=== PATIENT | female | born 1940 | race Caucasian/White ===

== ENCOUNTER 2018-12-08 08:01 | Inpatient (IN) | payer OTHER ==
[2018-12-07 14:59] VITALS: BMI 24.6
[2018-12-08] MEDS ORDERED: ALBUTEROL SO4 0.083% IH SOL 2.5 MG/3 ML VIAL.NEB. NEB PRN ×2 (10:41→20:05)
[2018-12-08] MEDS ORDERED: ALBUTEROL SO4 0.083% IH SOL 2.5 MG/3 ML VIAL.NEB. NEB ONE (10:43)
[2018-12-08] MEDS ORDERED: ALPRAZolam 0.25 MG TABLET PO PRN ×2 (10:57→20:05)
[2018-12-08] MEDS ORDERED: ALBUTEROL SO4 2.5/IPRATROPIUM 0.5 INH SOL 3 ML VIAL.NEB. NEB PRN ×2 (10:57→20:05)
[2018-12-08] MEDS ORDERED: ACETAMINOPHEN 325 MG TABLET (FP) PO PRN ×2 (10:57→20:05)
[2018-12-08] MEDS ORDERED: DEXTROSE 5%-0.45% SALINE 1,000 ML IV SCH ×2 (11:00→20:05)
[2018-12-08] MEDS ORDERED: ASPIRIN COATED 81 MG TABLET.EC PO SCH (11:00)
[2018-12-08] MEDS ORDERED: ACETAMINOPHEN 325 MG TABLET (FP) ONE (11:10)
--- NOTE | 2018-12-08 11:42 | CONSULT ---
Consultation: REQUESTING PROVIDER: CONSULT REQUEST: We have been asked to medically evaluate this patient for ( specify). HISTORY OF PRESENT ILLNESS: REVIEW OF SYSTEMS: CONSTITUTIONAL: Absent: fever, chills, diaphoresis, generalized weakness, malaise, loss of appetite, weight change HEENT: Absent: rhinorrhea, nasal congestion, throat pain, throat swelling, difficulty swallowing, mouth swelling, ear pain, eye pain, visual changes CARDIOVASCULAR: Absent: chest pain, syncope, palpitations, irregular heart rate, lightheadedness , peripheral edema RESPIRATORY: Absent: cough, shortness of breath, dyspnea with exertion, orthopnea, wheezing, stridor, hemoptysis GASTROINTESTINAL: Absent: abdominal pain, abdominal distension, nausea, vomiting, diarrhea, constipation, melena, hematochezia GENITOURINARY: Absent: dysuria, frequency, urgency, hesitancy, hematuria, flank pain, genital pain MUSCULOSKELETAL: Absent: myalgia, arthralgia, joint swelling, back pain, neck pain SKIN: Absent: rash, itching, pallor HEMATOLOGIC/IMMUNOLOGIC: Absent: easy bleeding, easy bruising, lymphadenopathy, frequent infections ENDOCRINE: Absent: unexplained weight gain, unexplained weight loss, heat intolerance, cold intolerance NEUROLOGIC: Absent: headache, focal weakness or paresthesias, dizziness, unsteady gait, seizure, mental status changes, bladder or bowel incontinence PSYCHIATRIC: Absent: anxiety, depression, suicidal or homicidal ideation, hallucinations. PHYSICAL EXAMINATION Vital Signs - 24 hr 12/08/18 12/08/18 12/08/18 08:31 09:20 09:35 Temperature 97.6 F 97.8 F Pulse Rate 74 80 70 Respiratory 16 20 20 Rate Blood Pressure 125/75 102/60 112/64 O2 Sat by Pulse 100 92 L 94 L Oximetry (%) 12/08/18 12/08/18 12/08/18 09:50 10:35 10:50 Temperature Pulse Rate 70 54 L 60 Respiratory 18 15 19 Rate Blood Pressure 106/63 136/71 144/62 O2 Sat by Pulse 94 L 100 100 Oximetry (%) 12/08/18 12/08/18 12/08/18 11:05 11:20 11:36 Temperature Pulse Rate 60 75 74 Respiratory 18 20 16 Rate Blood Pressure 132/67 138/68 124/63 O2 Sat by Pulse 100 99 100 Oximetry (%) GENERAL: Awake, alert, and fully oriented, in no acute distress. HEAD: Normal with no signs of trauma. EYES: Pupils equal, round and reactive to light, extraocular movements intact, sclera anicteric, conjunctiva clear. No lid lag. EARS, NOSE, THROAT: Ears normal, nares patent, oropharynx clear without exudates. Moist mucous membranes. NECK: Normal range of motion, supple without lymphadenopathy, JVD, or masses. LUNGS: Breath sounds equal, clear to auscultation bilaterally. No wheezes, and no crackles. No accessory muscle use. HEART: Regular rate and rhythm, normal S1 and S2 without murmur, rub or gallop. ABDOMEN: Soft, nontender, not distended, normoactive bowel sounds, no guarding, no rebound, no masses. No hepatomegaly or splenomegaly. MUSCULOSKELETAL: Normal range of motion at all joints. No bony deformities or tenderness. No CVA tenderness. UPPER EXTREMITIES: 2+ pulses, warm, well-perfused. No cyanosis. No clubbing. Cap refill <2 seconds. No peripheral edema. LOWER EXTREMITIES: 2+ pulses, warm, well-perfused. No calf tenderness. No peripheral edema. NEUROLOGICAL: Cranial nerves II-XII intact. Normal speech. Normal gait. PSYCHIATRIC: Cooperative. Good eye contact. Appropriate mood and affect. SKIN: Warm, dry, normal turgor, no rashes or lesions noted. Active Medications Generic Name Dose Route Start Last Admin Trade Name Freq PRN Reason Stop Dose Admin Acetaminophen 650 mg 12/08/18 10:57 Tylenol - PO Q6H PRN PAIN OR FEVER Albuterol Sulfate 1 amp 12/08/18 10:41 12/08/18 10:45 Ventolin 0.083% Nebulizer Soln - NEB 1 amp Q4H PRN Administration SHORT OF BREATH/WHEEZING Albuterol/Ipratropium 1 amp 12/08/18 10:57 Duoneb - NEB Q6H PRN SHORTNESS OF BREATH Alprazolam 0.25 mg 12/08/18 10:57 Xanax - PO Q8H PRN ANXIETY Aspirin 81 mg 12/08/18 11:00 Ecotrin - PO DAILY [place] Atorvastatin Calcium 20 mg 12/08/18 22:00 Lipitor - PO HS [place] Cefazolin Sodium/Dextrose 2 gm 12/08/18 18:00 Ancef 2 Gm Premixed Ivpb - IVPB Q8H-IV [place] Dextrose/Sodium Chloride 1,000 mls @ 75 mls/hr 12/08/18 11:00 D5-1/2ns - IV ASDIR [place] ASSESSMENT/PLAN: Dispo: Would recommend continued plan with telemetry vs. med-surg floor monitoring as satellite per primary/GI teams ATTENDING PHYSICIAN STATEMENT I saw and evaluated the patient. I reviewed the resident's note and discussed the case with the resident. I agree with the resident's findings and plan as documented. SUBJECTIVE: OBJECTIVE: ASSESSMENT AND PLAN:
--- NOTE | 2018-12-08 11:42 | CON.GI ---
Consult Consult Specialty:: Gastroenterology Referred by:: Dr Troy Diego Reason for Consultation:: Chest pain after colonoscopy - History of Present Illness Chief Complaint: Chest pain sore throat and dyspnea History of Present Illness: 78F underwent an ambulatory colonoscopy today that led to the removal of [address] colonography had revealed a left colon polyp and her mother developed colon cancer at age 49. After the colonoscopy she complained of throat pain. About 20 minutes late she developed a pressure type retrosternal chest pain and dyspnea. On exam I found wheezing and left sided rhonchi which were new. She denes abdominal pain. A stat EKG reveals no acute changes. She feels a bit better after a nebulizer treatment. She quit smoking in 2009 and denies asthma. - History Source History Provided By: Patient Limitations to Obtaining History: No Limitations - Past Medical History Cardio/Vascular: Yes: Hyperlipdemia, Other (MVP) Gastrointestinal: Yes: Diverticulosis, Other (colon polyps removed 12/08/18) ...: No Musculoskeletal: Yes: Chronic low back pain (lumbar disc disease with spinal stenosis and compression fracture) - Past Surgical History Past Surgical History: Yes: Appendectomy, Breast Biopsy (benign right breast bx) , Cholecystectomy, Colonoscopy, (x2) - Alcohol/Substance Use Hx Alcohol Use: Yes (OCCASIONAL) History of Substance Use: reports: None - Smoking History Smoking history: Former smoker Have you smoked in the past 12 months: No If you are a former smoker, when did you quit?: 1996 - Social History Usual Living Arrangement: With Spouse ADL: Independent 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 [employer] Place of : [facility] History of Recent Travel: No Home Medications - Allergies Allergies/Adverse Reactions: Allergies Allergy/AdvReac Type Severity Reaction Status Date / Time No Known Allergies Allergy Verified 04/14/16 13:24 - Home Medications Home Medications: Ambulatory Orders Alprazolam 1 mg PO HS 04/14/16 Aspirin [Aspirin EC] 81 mg PO DAILY 04/14/16 Cholecalciferol (Vitamin D3) [Vitamin D3 -] 1,000 unit PO DAILY 04/14/16 Atorvastatin Ca [Lipitor] 40 mg PO HS 12/08/18 Family Disease History - Family Disease History Family Disease History: Diabetes: Daughter, Heart Disease: Brother, CA: Father ( pancreatic cancer), Mother (colon cancer age 47) Other Family History: mat aunt had colon cancer, another mat aunt had breast cancer, pat GM and aunt had breast cancers Review of Systems - Review of Systems Constitutional: reports: Other (vertigo) Eyes: reports: No Symptoms HENT: reports: No Symptoms Neck: reports: No Symptoms Cardiovascular: reports: No Symptoms Respiratory: reports: No Symptoms Gastrointestinal: reports: No Symptoms Musculoskeletal: reports: Back Pain Neurological: reports: Dizziness, Other (vertigo) Physical Exam-GI Vital Signs: Vital Signs Temperature 97.8 F 12/08/18 09:20 Pulse Rate 74 12/08/18 11:36 Respiratory Rate 16 12/08/18 11:36 Blood Pressure 124/63 12/08/18 11:36 O2 Sat by Pulse Oximetry (%) 100 12/08/18 11:36 Current Medications Generic Name Dose Route Start Last Admin Trade Name Freq PRN Reason Stop Dose Admin Acetaminophen 650 mg 12/08/18 10:57 Tylenol - PO Q6H PRN PAIN OR FEVER Albuterol Sulfate 1 amp 12/08/18 10:41 12/08/18 10:45 Ventolin 0.083% Nebulizer Soln - NEB 1 amp Q4H PRN Administration SHORT OF BREATH/WHEEZING Albuterol/Ipratropium 1 amp 12/08/18 10:57 Duoneb - NEB Q6H PRN SHORTNESS OF BREATH Alprazolam 0.25 mg 12/08/18 10:57 Xanax - PO Q8H PRN ANXIETY Aspirin 81 mg 12/08/18 11:00 Ecotrin - PO DAILY [place] Atorvastatin Calcium 20 mg 12/08/18 22:00 Lipitor - PO HS [place] Cefazolin Sodium/Dextrose 2 gm 12/08/18 12:00 Ancef 2 Gm Premixed Ivpb - IVPB Q8H-IV [place] Dextrose/Sodium Chloride 1,000 mls @ 75 mls/hr 12/08/18 11:00 D5-1/2ns - IV ASDIR [place] Constitutional: Yes: Anxious Eyes: Yes: Conjunctiva Clear HENT: Yes: Atraumatic Neck: Yes: Supple Cardiovascular: Yes: Regular Rate and Rhythm Respiratory: Yes: Rhonchi, Wheezes Gastrointestinal Inspection: Yes: Scars (healed RUQ oblique and Pfannensteil incisions) ...Auscultate: Yes: Normoactive Bowel Sounds ...Palpate: Yes: Soft, Other (nontender) ...Rectal Exam: Yes: Other (no masses ( dne before the colonscopy)) Extremities: Yes: WNL Edema: No Peripheral Pulses WNL: Yes Problem List - Problems (1) Chest pain Code(s): R07.9 - CHEST PAIN, UNSPECIFIED (2) Dyspnea and respiratory abnormalities Code(s): R06.00 - DYSPNEA, UNSPECIFIED; R06.89 - OTHER ABNORMALITIES OF BREATHING (3) Wheezing on both sides of chest Code(s): R06.2 - WHEEZING (4) Colon polyps Code(s): K63.5 - POLYP OF COLON (5) Diverticula of colon Code(s): K57.30 - DVRTCLOS OF LG INT W/O PERFORATION OR ABSCESS W/O BLEEDING (6) Mitral valve prolapse Code(s): I34.1 - NONRHEUMATIC MITRAL (VALVE) PROLAPSE (7) Hyperlipidemia Code(s): E78.5 - HYPERLIPIDEMIA, UNSPECIFIED (8) Lumbar disc disease with radiculopathy Code(s): M51.16 - INTERVERTEBRAL DISC DISORDERS W RADICULOPATHY, LUMBAR REGION Assessment/Plan Assessment: - Given the throat soreness following the procedure followed by wheezing, rhonchi, chest pain and dyspnea, I suspect that the patient aspirated during the procedure and has aspiration pneumonia. - Despite the normal EKG cardiac ischemia needs to be excluded - Multiple colon polyps removed Plan: -- Admit to telemetry to Dr Diego's service. I discussed the case with him and he arrived to see Edita -- Blood testing to include troponins, EKG and CXR were ordered stat -- Nebulizer treatment was given and nasal O2 started -- Blood cultures were drawn and Kefzol have been started -- The situation was discussed with the patient and her and reported to Dr. Zhou
[2018-12-08 11:54] LABS: ARTERIAL BLD GAS O2 SATURATION 95.9 % (95-98); ARTERIAL BLOOD GAS BASE EXCESS -1.6 meq/l (-2-2); ARTERIAL BLOOD GAS PCO2 35.8 mmHg (35-45); ARTERIAL BLOOD GAS PO2 83.2 mmHg (80-105); ARTERIAL BLOOD GAS pH 7.41 (7.35-7.45)
[2018-12-08 11:57] LABS: ALLENS TEST POSITIVE
[2018-12-08] MEDS ORDERED: ceFAZolin 2 GRAM PREMIX BAG IVPB SCH (12:00)
--- NOTE | 2018-12-08 12:47 | PN ---
Teaching Attending Note Name of Resident: Michael Frost ATTENDING PHYSICIAN STATEMENT I saw and evaluated the patient. I reviewed the resident's note and discussed the case with the resident. I agree with the resident's findings and plan as documented. SUBJECTIVE: Pt seen and examined in the endoscopy suite. Briefly, 78yo female with h/o hyperlipidemia, diverticulosis who was here for elective colonoscopy. Post procedure developed shortness of breath, cough with yellow sputum and chest tightness. States feeling better already. No history of asthma/COPD. She is a former smoker. OBJECTIVE: Vital Signs Period Temp Pulse Resp BP Sys/Gracia Pulse Ox Last 24 Hr 97.6 F-97.8 F 54-80 15-20 102-144/60-75 92-100 Intake & Output 12/05/18 12/06/18 12/07/18 12/08/18 23:59 23:59 23:59 23:59 Intake Total 0 Balance 0 Weight 67.132 kg 67.132 kg Gen: NAD at rest Heart: RRR Lung: rare rhonchi Abd: soft, nontender Ext: no edema Active Medications Acetaminophen (Tylenol -) 650 mg PO Q6H PRN PRN Reason: PAIN OR FEVER Albuterol Sulfate (Ventolin 0.083% Nebulizer Soln -) 1 amp NEB Q4H PRN PRN Reason: SHORT OF BREATH/WHEEZING Last Admin: 12/08/18 10:45 Dose: 1 amp Albuterol/Ipratropium (Duoneb -) 1 amp NEB Q6H PRN PRN Reason: SHORTNESS OF BREATH Alprazolam (Xanax -) 0.25 mg PO Q8H PRN PRN Reason: ANXIETY Aspirin (Ecotrin -) 81 mg PO DAILY [place] Atorvastatin Calcium (Lipitor -) 20 mg PO HS [place] Cefazolin Sodium/Dextrose (Ancef 2 Gm Premixed Ivpb -) 2 gm IVPB Q8H-IV [place] Dextrose/Sodium Chloride (D5-1/2ns -) 1,000 mls @ 75 mls/hr IV ASDIR [place] ASSESSMENT AND PLAN: Mild Aspiration Pneumonitis Hypoxia resolved Hyperlipidemia - inhaled bronchodilators as needed - O2 to keep Spo2 >90% - can monitor off antibiotics - DVT prophylaxis - does not need ICU monitoring at this time, please call if any change in her clinical condition Thank you for this consult Yanick Grande MD
[2018-12-08 12:49] LABS: BASO % 0.4 % (0-2.0); EOS % 0.4 % (0-4.5); HEMATOCRIT 39.7 % (32.4-45.2); HEMOGLOBIN 13.4 GM/dL (10.7-15.3); LYMPH % 8.7 % (8-40); MCH 31.1 pg (25.7-33.7); MCHC 33.9 g/dl (32.0-36.0); MEAN CELL VOLUME 91.8 fl (80-96); MEAN PLT VOLUME 8.7 fl (7.5-11.1); MONO % 3.8 % (3.8-10.2); NEUT % 86.7 % (42.8-82.8); PLATELET COUNT 202 K/MM3 (134-434); RBC 4.32 M/mm3 (3.60-5.2); RDW 13.3 % (11.6-15.6); WHITE BLOOD COUNT 9.5 K/mm3 (4.0-10.0)
[2018-12-08 13:04] LABS: INR 0.96 (0.83-1.09); PROTHROMBIN TIME (PATIENT) 11.3 SEC (9.7-13.0)
--- NOTE | 2018-12-08 13:17 | EKG ---
Test Reason : Blood Pressure : / mmHG Vent. Rate : 054 BPM Atrial Rate : 054 BPM P-R Int : 176 ms QRS Dur : 098 ms QT Int : 496 ms P-R-T Axes : 060 033 047 degrees QTc Int : 470 ms SINUS BRADYCARDIA OTHERWISE NORMAL ECG NO PREVIOUS ECGS AVAILABLE Confirmed by HOUSTON MORALEZ, GAURAV ([id number]) on 12/08/2018 1:17:38 PM Referred By: Tay Le Confirmed By:GAURAV CONRAD MD
[2018-12-08 13:28] LABS: ALBUMIN 3.9 g/dl (3.4-5.0); ALK PHOS 89 U/L (45-117); ANION GAP 7 MMOL/L (8-16); BILIRUBIN,TOTAL 0.6 mg/dL (0.2-1); BLOOD UREA NITROGEN 12.3 mg/dL (7-18); CHLORIDE 108 mmol/L (98-107); CO2 25 mmol/L (21-32); CREATININE 0.8 mg/dL (0.55-1.3); GLUCOSE,RANDOM 105 mg/dL (74-106); POTASSIUM 3.8 mmol/L (3.5-5.1); SGOT/AST 32 U/L (15-37); SGPT/ALT 30 U/L (13-61); SODIUM 140 mmol/L (136-145); TOT PROT 7.1 g/dl (6.4-8.2)
--- NOTE | 2018-12-08 14:02 | CON.CARD ---
Consult Consult Specialty:: Cardiology Referred by:: Johnathon Reason for Consultation:: chest pain - History of Present Illness Chief Complaint: chest fullness History of Present Illness: 78 year old female with a pmhx of hld, anxiety, and ex-tobacco use who went for elective colonoscopy today and after she felt like she had phlegm and chest fullness. Denies any chest pain or pressure. No pnd, orthopnea, or edema. No sob or palpitations. Says feels well now. Says no chest pain or dyspnea on exertion at home. Says unclear if had stress test or echo with Dr. Diego. - History Source History Provided By: Patient, Medical Record - Past Medical History Cardio/Vascular: Yes: Hyperlipdemia, Other (MVP) Gastrointestinal: Yes: Diverticulosis, Other (colon polyps removed 12/08/18) ...: No Musculoskeletal: Yes: Chronic low back pain (lumbar disc disease with spinal stenosis and compression fracture) - Past Surgical History Past Surgical History: Yes: Appendectomy, Breast Biopsy (benign right breast bx) , Cholecystectomy, Colonoscopy, (x2) - Alcohol/Substance Use Hx Alcohol Use: Yes (OCCASIONAL) History of Substance Use: reports: None - Smoking History Smoking history: Former smoker Have you smoked in the past 12 months: No If you are a former smoker, when did you quit?: 1996 - Social History Usual Living Arrangement: With Spouse ADL: Independent 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 [employer] History of Recent Travel: No Home Medications - Allergies Allergies/Adverse Reactions: Allergies Allergy/AdvReac Type Severity Reaction Status Date / Time No Known Allergies Allergy Verified 04/14/16 13:24 - Home Medications Home Medications: Ambulatory Orders Alprazolam 1 mg PO HS 04/14/16 Aspirin [Aspirin EC] 81 mg PO DAILY 04/14/16 Cholecalciferol (Vitamin D3) [Vitamin D3 -] 1,000 unit PO DAILY 04/14/16 Atorvastatin Ca [Lipitor] 40 mg PO HS 12/08/18 Family Disease History - Family Disease History Family Disease History: Diabetes: Daughter, Heart Disease: Brother, CA: Father ( pancreatic cancer), Mother (colon cancer age 47) Other Family History: mat aunt had colon cancer, another mat aunt had breast cancer, pat GM and aunt had breast cancers Vital Signs: Vital Signs Temperature 97.8 F 12/08/18 09:20 Pulse Rate 82 12/08/18 11:45 Respiratory Rate 20 12/08/18 11:45 Blood Pressure 124/63 12/08/18 11:45 O2 Sat by Pulse Oximetry (%) 100 12/08/18 11:45 Constitutional: Yes: No Distress Respiratory: Yes: CTA Bilaterally Gastrointestinal: Yes: Soft Cardiovascular: Yes: Regular Rate and Rhythm JVD: No Carotid Bruit: No PMI: Non-Displaced Heart Sounds: Yes: S1, S2 Murmur: No: Systolic Murmur Musculoskeletal: Yes: WNL Extremities: Yes: WNL Edema: No - Other Data Labs, Other Data: CBC, BMP 12/08/18 12:28 12/08/18 12:28 INR, PTT INR 0.96 (0.83-1.09) 12/08/18 12:28 Troponin, BNP 12/08/18 12:28 Troponin I < 0.02 Troponin, BNP 12/08/18 12:28 Troponin I < 0.02 Imaging - Results EKG: Image Reviewed Assessment/Plan 78 year old female with a pmhx of hld, anxiety, and ex-tobacco use who went for elective colonoscopy today and after she felt like she had phlegm and chest fullness. Denies any chest pain or pressure. No pnd, orthopnea, or edema. No sob or palpitations. Says feels well now. Says no chest pain or dyspnea on exertion at home. Says unclear if had stress test or echo with Dr. Diego. 1) Chest symptoms Very atypical EKG sinus rhythm at 54bpm with no acute st changes Feels well. No symptoms of angina at home. Takes aspirin/statin at home would continue if no contraindications. -Trops neg x1. Would rule out with CE's and if no events on tele overnight and enzymes negative than outpatient follow up with Dr. Diego and echo/stress as an outpatient.
[2018-12-08] MEDS ORDERED: BENZOCAINE/MENTH/CETYLPYRD CL 1 EACH LOZENGE MM PRN (15:09)
--- NOTE | 2018-12-08 15:09 | HP ---
Admitting History and Physical - Primary Care Physician PCP: Troy Diego - Admission Chief Complaint: Chest pain History of Present Illness: Patient is a 78 y.o female with past medical history of HLD, Diverticulosis, Chronic lower back pain. Patient underwent colonoscopy today with polypectomy, 5 polyps removed. After patient states she developed chest and throat congestion and SOB. Patient states prior to colonoscopy today she was in her usual state of health. EKG shows sinus bradycardia and troponin negative. History Source: Patient Limitations to Obtaining History: No Limitations - Past Medical History Cardiovascular: Yes: Hyperlipdemia, Other (MVP) Gastrointestinal: Yes: Diverticulosis, Other (colon polyps removed 12/08/18) ...: No Musculoskeletal: Yes: Chronic low back pain (lumbar disc disease with spinal stenosis and compression fracture) - Past Surgical History Past Surgical History: Yes: Appendectomy, Breast Biopsy (benign right breast bx) , Cholecystectomy, Colonoscopy, (x2) - Smoking History Smoking history: Former smoker Have you smoked in the past 12 months: No If you are a former smoker, when did you quit?: 1996 - Alcohol/Substance Use Hx Alcohol Use: Yes (OCCASIONAL) History of Substance Use: reports: None - Social History Usual Living Arrangement: Yes: With Spouse ADL: Independent 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 [employer] History of Recent Travel: No Home Medications - Allergies Allergies/Adverse Reactions: Allergies Allergy/AdvReac Type Severity Reaction Status Date / Time No Known Allergies Allergy Verified 04/14/16 13:24 - Home Medications Home Medications: Ambulatory Orders Alprazolam 1 mg PO HS 04/14/16 Aspirin [Aspirin EC] 81 mg PO DAILY 04/14/16 Cholecalciferol (Vitamin D3) [Vitamin D3 -] 1,000 unit PO DAILY 04/14/16 Atorvastatin Ca [Lipitor] 40 mg PO HS 12/08/18 Family Disease History - Family Disease History Family Disease History: Diabetes: Daughter, Heart Disease: Brother, CA: Father ( pancreatic cancer), Mother (colon cancer age 47) Other Family History: mat aunt had colon cancer, another mat aunt had breast cancer, pat GM and aunt had breast cancers Review of Systems - Review of Systems Constitutional: reports: Loss of Appetite, Weakness Eyes: reports: No Symptoms HENT: reports: Throat Pain Neck: reports: No Symptoms Cardiovascular: reports: No Symptoms Respiratory: reports: SOB Gastrointestinal: reports: No Symptoms Genitourinary: reports: No Symptoms Breasts: reports: No Symptoms Reported Musculoskeletal: reports: No Symptoms Integumentary: reports: No Symptoms Neurological: reports: No Symptoms Endocrine: reports: No Symptoms Hematology/Lymphatic: reports: No Symptoms Psychiatric: reports: No Symptoms Physical Examination Vital Signs: Vital Signs Temperature 97.8 F 12/08/18 09:20 Pulse Rate 82 12/08/18 11:45 Respiratory Rate 20 12/08/18 11:45 Blood Pressure 124/63 12/08/18 11:45 O2 Sat by Pulse Oximetry (%) 100 12/08/18 11:45 Constitutional: Yes: No Distress, Anxious Eyes: Yes: Conjunctiva Clear HENT: Yes: Atraumatic Neck: Yes: Supple Cardiovascular: Yes: Bradycardia Respiratory: Yes: Regular, Wheezes Gastrointestinal: Yes: Normal Bowel Sounds, Soft Musculoskeletal: Yes: WNL Extremities: Yes: WNL Edema: No Neurological: Yes: Alert, Oriented Psychiatric: Yes: Alert, Oriented Labs: CBC, BMP 12/08/18 12:28 12/08/18 12:28 Imaging - Results Chest X-ray: Report Reviewed Problem List - Problems (1) Chest pain Assessment/Plan: -Cardiology on board -tele monitoring -EKG sinus enriqueta -trop neg x 1 Code(s): R07.9 - CHEST PAIN, UNSPECIFIED (2) Colon polyps Assessment/Plan: -GI on board -s/p colonoscopy Code(s): K63.5 - POLYP OF COLON (3) Dyspnea and respiratory abnormalities Assessment/Plan: -Pulm on board -bronchodilators -O2 via NC -keep SpO2 >90% -CXR shows no evidence of pneumothorax, vascular congestive changes, pr airspace opacities -BC pending -Cefazolin -2/2 possible aspiration PNA? Code(s): R06.00 - DYSPNEA, UNSPECIFIED; R06.89 - OTHER ABNORMALITIES OF BREATHING (4) Hyperlipidemia Assessment/Plan: -atorvastatin Code(s): E78.5 - HYPERLIPIDEMIA, UNSPECIFIED Assessment/Plan see problem list
[2018-12-08] MEDS: CEFAZOLIN 2 GM/D5W 2 GM/50 ML ML IVPB SCH (17:52)
[2018-12-08] MEDS ORDERED: PT OWN MED DRAWER 7, Y5N ONE ×2 (18:07→20:10)
[2018-12-08] MEDS ORDERED: ONDANSETRON 4 MG/2 ML VIAL IVPUSH ONE (19:57)
[2018-12-08] MEDS ORDERED: ATORVASTATIN CA 20 MG TABLET (FP) PO SCH ×2 (22:00)
[2018-12-09] MEDS: CEFAZOLIN 2 GM/D5W 2 GM/50 ML ML IVPB SCH ×2 (01:07→10:10)
[2018-12-09] MEDS ORDERED: PT OWN MED DRAWER 7, Y5N ONE (04:37)
[2018-12-09 06:57] LABS: HEMATOCRIT 37.1 % (32.4-45.2); HEMOGLOBIN 12.6 GM/dL (10.7-15.3); MCH 31.1 pg (25.7-33.7); MEAN CELL VOLUME 91.6 fl (80-96); MEAN PLT VOLUME 9.1 fl (7.5-11.1); PLATELET COUNT 199 K/MM3 (134-434); RBC 4.05 M/mm3 (3.60-5.2); RDW 13.1 % (11.6-15.6); WHITE BLOOD COUNT 8.7 K/mm3 (4.0-10.0)
[2018-12-09 07:25] LABS: ALBUMIN 3.3 g/dl (3.4-5.0); BILIRUBIN,TOTAL 0.9 mg/dL (0.2-1); BLOOD UREA NITROGEN 7.6 mg/dL (7-18); CALCIUM 8.7 mg/dL (8.5-10.1); CREATININE 0.9 mg/dL (0.55-1.3); POTASSIUM 3.9 mmol/L (3.5-5.1); TOT PROT 6.4 g/dl (6.4-8.2)
--- NOTE | 2018-12-09 09:44 | PATH ---
Surgical Pathology Report Patient Name: EUSEBIO REYES [facility]. Rec. #: [id number] /Age/Gender: 1940 (Age: 78) / F Account: [id number] Location: 4 SO PEDS/ADOL Taken: 12/08/2018 Received: 12/08/2018 Reported: 12/09/2018 Physicians: Tay Le M.D. Specimen(s) Received A: RECTUM, POLYP B: SIGMOID COLON, POLYP C: DESCENDING COLON, POLYP D: DISTAL TRANSVERSE COLON, POLYP E: PROXIMAL TRANSVERSE COLON, POLYP Clinical History Abnormal CT scan Postoperative diagnosis: Diverticulosis, colon polyps Final Diagnosis A. RECTUM, POLYP, BIOPSY: POLYPOID COLONIC MUCOSA WITH PROMINENT LYMPHOID AGGREGATE AND FOCAL SUPERFICIAL HYPERPLASTIC FEATURES. B. SIGMOID COLON, POLYP, POLYPECTOMY: TUBULAR ADENOMA. C. DESCENDING COLON, POLYP, POLYPECTOMY: TUBULAR ADENOMA. D. DISTAL TRANSVERSE COLON, POLYP, BIOPSY: TUBULAR ADENOMA. E. PROXIMAL TRANSVERSE COLON, POLYP, BIOPSY: TUBULAR ADENOMA. Electronically Signed Nia Galaviz M.D. Gross Description A. Received in formalin, labeled "polyp rectum" are 2 hurley, irregular portions of soft tissue averaging 0.2 cm. in greatest dimension. The specimens are submitted in toto in one cassette. B. Received in formalin, labeled "polyp sigmoid" is a hurley, irregular portion of soft tissue measuring 0.4 cm. in greatest dimension. The specimen is submitted in toto in one cassette. C. Received in formalin, labeled "polyp descending colon" is a hurley, irregular portion of soft tissue measuring 0.4 cm. in greatest dimension. The specimen is submitted in toto in one cassette. D. Received in formalin, labeled "polyp distal transverse colon" are 2 hurley, irregular portions of soft tissue measuring 0.2 and 0.3 cm. in greatest dimension. The specimens are submitted in toto in one cassette. E. Received in formalin, labeled "polyp proximal transverse colon" are 3 hurley, irregular portions of soft tissue ranging from 0.2-0.3 cm. in greatest dimension. The specimens are submitted in toto in one cassette. DL/12/08/2018 saudi/12/08/2018
[2018-12-09] MEDS ORDERED: ASPIRIN COATED 81 MG TABLET.EC PO SCH (10:00)
--- NOTE | 2018-12-09 11:19 | PN ---
Progress Note, Physician Chief Complaint: Chest pain after colonoscopy History of Present Illness: NAD Chest pain resolved CXR negative Trops x 1 negative, second pending Seen by Cardiology No acute changes on EKG Tele overnight- no events noted Yrn SOB, chest pain C/O mild sore throat which is improving - Current Medication List Current Medications: Active Medications Acetaminophen (Tylenol -) 650 mg PO Q6H PRN PRN Reason: PAIN OR FEVER Last Admin: 12/09/18 06:02 Dose: 650 mg Albuterol Sulfate (Ventolin 0.083% Nebulizer Soln -) 1 amp NEB Q4H PRN PRN Reason: SHORT OF BREATH/WHEEZING Albuterol/Ipratropium (Duoneb -) 1 amp NEB Q6H PRN PRN Reason: SHORTNESS OF BREATH Alprazolam (Xanax -) 0.25 mg PO Q8H PRN PRN Reason: ANXIETY Aspirin (Ecotrin -) 81 mg PO DAILY [facility] Last Admin: 12/09/18 10:10 Dose: 81 mg Atorvastatin Calcium (Lipitor -) 20 mg PO HS [facility] Last Admin: 12/08/18 21:24 Dose: 20 mg Benzocaine/Menthol (Cepacol Lozenge -) 1 each MM Q2H PRN PRN Reason: SORE THROAT Last Admin: 12/08/18 17:53 Dose: 1 each Cefazolin Sodium/Dextrose (Ancef 2 Gm Premixed Ivpb -) 2 gm in 50 mls @ 100 mls /hr IVPB Q8H-IV [facility] Last Admin: 12/09/18 10:10 Dose: 100 mls/hr Dextrose/Sodium Chloride (D5-1/2ns -) 1,000 mls @ 75 mls/hr IV ASDIR [facility] Last Admin: 12/08/18 20:17 Dose: 75 mls/hr - Objective Vital Signs: Vital Signs Temperature 98.5 F 12/09/18 06:00 Pulse Rate 74 12/09/18 06:00 Respiratory Rate 20 12/09/18 06:00 Blood Pressure 101/56 L 12/09/18 06:00 O2 Sat by Pulse Oximetry (%) 98 12/08/18 20:01 Constitutional: Yes: Well Nourished, No Distress, Calm Cardiovascular: Yes: Regular Rate and Rhythm Respiratory: Yes: Regular Gastrointestinal: Yes: WNL, Normal Bowel Sounds, Soft Genitourinary: Yes: WNL Musculoskeletal: Yes: WNL Extremities: Yes: WNL Edema: No Peripheral Pulses WNL: Yes Neurological: Yes: Alert, Oriented Psychiatric: Yes: Alert, Oriented Labs: CBC, BMP 12/09/18 06:02 12/09/18 06:02 INR, PTT INR 0.96 (0.83-1.09) 12/08/18 12:28 Problem List - Problems (1) Chest pain Assessment/Plan: -resolved -cardiology consult appreciated -CXR nromal -No changes on EKG -Tele-no events overnight -Trop x 1 negative, second pending this AM, if negative can be discharged home with outpatient f/u Code(s): R07.9 - CHEST PAIN, UNSPECIFIED (2) Sore throat Assessment/Plan: -Post colonoscopy -Cepacol lozenges -cefuroxime 500 mg po BID x 7 days o/p Code(s): J02.9 - ACUTE PHARYNGITIS, UNSPECIFIED Assessment/Plan see problem list self ambulatory
--- NOTE | 2018-12-09 11:54 | PN ---
Progress Note (short form) - Note Progress Note: PULMONARY Feels close to baseline. c/o sore throat but without shortness of breath, wheezing. No fevers recorded. Vital Signs Period Temp Pulse Resp BP Sys/[place] Pulse Ox Last 24 Hr 97.9 F-98.5 F 73-76 18-20 101-124/56-69 98 Gen: NAD at rest Heart: RRR Lung: decreased breath sounds at the bases Abd: soft, nontender Ext: no edema CBC, BMP 12/09/18 06:02 12/09/18 06:02 Active Medications Acetaminophen (Tylenol -) 650 mg PO Q6H PRN PRN Reason: PAIN OR FEVER Last Admin: 12/09/18 06:02 Dose: 650 mg Albuterol Sulfate (Ventolin 0.083% Nebulizer Soln -) 1 amp NEB Q4H PRN PRN Reason: SHORT OF BREATH/WHEEZING Albuterol/Ipratropium (Duoneb -) 1 amp NEB Q6H PRN PRN Reason: SHORTNESS OF BREATH Alprazolam (Xanax -) 0.25 mg PO Q8H PRN PRN Reason: ANXIETY Aspirin (Ecotrin -) 81 mg PO DAILY [facility] Last Admin: 12/09/18 10:10 Dose: 81 mg Atorvastatin Calcium (Lipitor -) 20 mg PO HS [facility] Last Admin: 12/08/18 21:24 Dose: 20 mg Benzocaine/Menthol (Cepacol Lozenge -) 1 each MM Q2H PRN PRN Reason: SORE THROAT Last Admin: 12/08/18 17:53 Dose: 1 each Cefazolin Sodium/Dextrose (Ancef 2 Gm Premixed Ivpb -) 2 gm in 50 mls @ 100 mls /hr IVPB Q8H-IV [facility] Last Admin: 12/09/18 10:10 Dose: 100 mls/hr Dextrose/Sodium Chloride (D5-1/2ns -) 1,000 mls @ 75 mls/hr IV ASDIR [facility] Last Admin: 12/08/18 20:17 Dose: 75 mls/hr A/P Mild Aspiration Pneumonitis Hypoxia resolved Hyperlipidemia - inhaled bronchodilators as needed - O2 to keep Spo2 >90% - can monitor off antibiotics - DVT prophylaxis - can d/c home from pulmonary standpoint
--- NOTE | 2018-12-09 13:52 | PN ---
Progress Note, Physician Chief Complaint: No complaints Sinus with no events on tele History of Present Illness: 78 year old female with a pmhx of hld, anxiety, and ex-tobacco use who went for elective colonoscopy today and after she felt like she had phlegm and chest fullness. Denies any chest pain or pressure. No pnd, orthopnea, or edema. No sob or palpitations. Says feels well now. Says no chest pain or dyspnea on exertion at home. Says unclear if had stress test or echo with Dr. Diego. - Current Medication List Current Medications: Active Medications Acetaminophen (Tylenol -) 650 mg PO Q6H PRN PRN Reason: PAIN OR FEVER Last Admin: 12/09/18 06:02 Dose: 650 mg Albuterol Sulfate (Ventolin 0.083% Nebulizer Soln -) 1 amp NEB Q4H PRN PRN Reason: SHORT OF BREATH/WHEEZING Albuterol/Ipratropium (Duoneb -) 1 amp NEB Q6H PRN PRN Reason: SHORTNESS OF BREATH Alprazolam (Xanax -) 0.25 mg PO Q8H PRN PRN Reason: ANXIETY Aspirin (Ecotrin -) 81 mg PO DAILY [facility] Last Admin: 12/09/18 10:10 Dose: 81 mg Atorvastatin Calcium (Lipitor -) 20 mg PO HS [facility] Last Admin: 12/08/18 21:24 Dose: 20 mg Benzocaine/Menthol (Cepacol Lozenge -) 1 each MM Q2H PRN PRN Reason: SORE THROAT Last Admin: 12/08/18 17:53 Dose: 1 each Cefazolin Sodium/Dextrose (Ancef 2 Gm Premixed Ivpb -) 2 gm in 50 mls @ 100 mls /hr IVPB Q8H-IV [facility] Last Admin: 12/09/18 10:10 Dose: 100 mls/hr Dextrose/Sodium Chloride (D5-1/2ns -) 1,000 mls @ 75 mls/hr IV [facility] Last Admin: 12/08/18 20:17 Dose: 75 mls/hr - Objective Vital Signs: Vital Signs Temperature 98.4 F 12/09/18 10:00 Pulse Rate 81 12/09/18 10:00 Respiratory Rate 19 12/09/18 10:00 Blood Pressure 99/55 L 12/09/18 10:00 O2 Sat by Pulse Oximetry (%) 98 12/08/18 20:01 Constitutional: Yes: No Distress Neck: Yes: Supple Cardiovascular: Yes: Regular Rate and Rhythm, S1, S2. No: JVD, Murmur Respiratory: Yes: CTA Bilaterally Gastrointestinal: Yes: Soft Edema: No Labs: CBC, BMP 12/09/18 06:02 12/09/18 06:02 INR, PTT INR 0.96 (0.83-1.09) 12/08/18 12:28 Assessment/Plan 78 year old female with a pmhx of hld, anxiety, and ex-tobacco use who went for elective colonoscopy today and after she felt like she had phlegm and chest fullness. Denies any chest pain or pressure. No pnd, orthopnea, or edema. No sob or palpitations. Says feels well now. Says no chest pain or dyspnea on exertion at home. Says unclear if had stress test or echo with Dr. Diego. 1) Chest symptoms Very atypical EKG sinus rhythm at 54bpm with no acute st changes Feels well. No symptoms of angina at home. Takes aspirin/statin at home would continue if no contraindications. -Trops neg. Tele uneventful No further inpatient cardiac work up at this time. Can follow up with Dr. Diego and decide whether needs echo/stress as an outpatient.
[2018-12-09 14:31] VITALS: BP 107/63; PULSE 78; TEMP 97.7
== END 2018-12-09 15:45 | disposition home or self-care (01) | DRG 205 ==
LOC: JASU-ENDO 08:01 → JSAMEDAYSX 10:46 → J4S 12:31
PROVIDERS: ADMIT Family Medicine; ATTEND Family Medicine
PROC: 0DBN8ZX Excision of Sigmoid Colon, Via Natural or Artificial Opening Endoscopic, Diagnostic (ICD-10-PCS; 2018-12-08)
PROC: 0DBM8ZX Excision of Descending Colon, Via Natural or Artificial Opening Endoscopic, Diagnostic (ICD-10-PCS; 2018-12-08)
PROC: 0DBL8ZX Excision of Transverse Colon, Via Natural or Artificial Opening Endoscopic, Diagnostic (ICD-10-PCS; 2018-12-08)
PROC: 0DBP8ZX Excision of Rectum, Via Natural or Artificial Opening Endoscopic, Diagnostic (ICD-10-PCS; principal; 2018-12-08 08:45)
DX: J95.89 Other postprocedural complications and disorders of respiratory system, not elsewhere classified (principal); J69.0 Pneumonitis due to inhalation of food and vomit; Y84.8 Other medical procedures as the cause of abnormal reaction of the patient, or of later complication, without mention of misadventure at the time of the procedure; R07.89 Other chest pain; R09.02 Hypoxemia; I34.1 Nonrheumatic mitral (valve) prolapse; E78.5 Hyperlipidemia, unspecified; K57.30 Diverticulosis of large intestine without perforation or abscess without bleeding; M54.5 Low back pain; Z87.891 Personal history of nicotine dependence; M51.16 Intervertebral disc disorders with radiculopathy, lumbar region; Z86.010 Personal history of colon polyps
CPT/HCPCS: 36415; 36600; 71045-TC-FY; 80053; 82550; 82553; 82803; 84484; 85025; 85027; 85610; 87040; 88305-TC; 93005; 93010; 94640